=== PATIENT | male | born 1990 | race Caucasian/White ===

== ENCOUNTER 2016-11-22 11:14 | Emergency (ER) | payer SELFPAY ==
[~2016-11-22] VITALS: Ht 188 cm; Wt 135.4 kg
[2016-11-22 11:58] LABS: HEMOGLOBIN 17.3 g/dL (13.7-18.0)
[2016-11-22] MEDS ORDERED: SODIUM CHLORIDE 0.9% 1,000ML IVBOLUS ONE (12:00)
[2016-11-22] MEDS ORDERED: ONDANSETRON 2MG/ML, 2ML IVPush ONE (12:00)
[2016-11-22 12:09] LABS: BLOOD UREA NITROGEN 8 mg/dL (7-18)
[2016-11-22 12:14] LABS: ASPARTATE AMINO TRANSFERASE 34 U/L (15-37)
[2016-11-22] MEDS ORDERED: ONDANSETRON 2MG/ML, 2ML ONE ×2 (12:14→12:19)
[2016-11-22] MEDS ORDERED: FAMOTIDINE 20 MG TABLET ONE (12:44)
[2016-11-22] MEDS ORDERED: ONDANSETRON ODT 4 MG ONE (12:45)
[2016-11-22 12:57] VITALS: BP 117/64
[2016-11-22] MEDS ORDERED: FAMOTIDINE 20 MG TABLET PO ONE (13:00)
[2016-11-22] MEDS ORDERED: ONDANSETRON ODT 4 MG PO ONE (13:00)
== END 2016-11-22 13:32 | disposition home or self-care (01) ==
LOC: ED 13:15
DX: R11.10 Vomiting, unspecified (principal); R10.13 Epigastric pain
CPT/HCPCS: 36415; 76700; 80053; 83690; 85025; 99285; Q0162